=== PATIENT | female | born 1990 | race Caucasian/White ===

== ENCOUNTER 2017-02-08 14:15 | Emergency (ER) | payer MEDICAID ==
[~2017-02-08] VITALS: Ht 162.6 cm; Wt 59.0 kg
[2017-02-08 14:17] VITALS: BP 129/95
[2017-02-08] MEDS ORDERED: DIPH,PERTUSS(ACELL),TET VAC/PF 0.5 ML IM-VACC ONE ×2 (15:00→15:51)
[2017-02-08] MEDS ORDERED: BACITRACIN ZINC OINT 500U/GM, 0.9 GM ONE (15:32)
== END 2017-02-08 17:55 | disposition home or self-care (01) ==
LOC: ED 16:04
DX: S61.250A Open bite of right index finger without damage to nail, initial encounter (principal); S00.12XA Contusion of left eyelid and periocular area, initial encounter; Z23 Encounter for immunization; W50.3XXA Accidental bite by another person, initial encounter; Y04.8XXA Assault by other bodily force, initial encounter; Y93.89 Activity, other specified; Y99.8 Other external cause status; Y92.828 Other wilderness area as the place of occurrence of the external cause
CPT/HCPCS: 72050; 90471; 90715